=== PATIENT | female | born 1995 | race Caucasian/White ===

== ENCOUNTER 2016-04-24 16:44 | Inpatient (IN) | payer OTHER ==
[2016-04-24 17:23] LABS: RED BLOOD COUNT 3.73 M/UL (4.00-5.10); WHITE BLOOD COUNT 8.4 K/UL (4.5-11.0)
[2016-04-26 05:46] LABS: HEMOGLOBIN 7.2 gm/dl (12.3-15.3)
[2016-04-26 12:01] LABS: HEMOGLOBIN 6.3 gm/dl (12.3-15.3)
[2016-04-27 03:15] LABS: RED BLOOD COUNT 2.14 M/UL (4.00-5.10); WHITE BLOOD COUNT 15.4 K/UL (4.5-11.0)
[2016-04-27 03:16] LABS: HEMOGLOBIN 5.8 gm/dl (12.3-15.3)
[2016-04-27 11:51] LABS: HEMOGLOBIN 7.1 gm/dl (12.3-15.3); RED BLOOD COUNT 2.59 M/UL (4.00-5.10); WHITE BLOOD COUNT 17.8 K/UL (4.5-11.0)
[2016-08-20] MEDS ORDERED: NAPROSYN500 MG PO (07:06)
[2016-08-20] MEDS ORDERED: NORCO 5-325 TA1 EACH PO (10:07)
== END 2016-04-27 16:15 | disposition home or self-care (01) | DRG 768 ==
LOC: OB 16:44
PROVIDERS: Obstetrics & Gynecology; ADMIT Obstetrics & Gynecology
PROC: 10E0XZZ Delivery of Products of Conception, External Approach (ICD-10-PCS; principal; 2016-04-24)
PROC: 0W3R0ZZ Control Bleeding in Genitourinary Tract, Open Approach (ICD-10-PCS; 2016-04-24)
PROC: 0KQM0ZZ Repair Perineum Muscle, Open Approach (ICD-10-PCS; 2016-04-24)
PROC: 0U7C7ZZ Dilation of Cervix, Via Natural or Artificial Opening (ICD-10-PCS; 2016-04-24)
PROC: 10907ZC Drainage of Amniotic Fluid, Therapeutic from Products of Conception, Via Natural or Artificial Opening (ICD-10-PCS; 2016-04-24)
PROC: 30233H1 Transfusion of Nonautologous Whole Blood into Peripheral Vein, Percutaneous Approach (ICD-10-PCS; 2016-04-27)
DX: O48.0 Post-term pregnancy (principal); O72.1 Other immediate postpartum hemorrhage; O70.1 Second degree perineal laceration during delivery; Z3A.40 40 weeks gestation of pregnancy; Z37.0 Single live birth; Z83.3 Family history of diabetes mellitus; Z82.49 Family history of ischemic heart disease and other diseases of the circulatory system; Z80.9 Family history of malignant neoplasm, unspecified; Z84.89 Family history of other specified conditions
CPT/HCPCS: 36415; 36430; 36600; 81001; 82800; 83518; 85014; 85018; 85025; 86850; 86900; 86901; 86920; J2210; J2300; J2590; J2795; J3010; J7120; P9016; Q0163

== ENCOUNTER 2016-06-25 18:41 | Emergency (ER) | payer OTHER ==
[2016-06-25 19:55] LABS: HEMOGLOBIN 10.3 gm/dl (12.3-15.3); RED BLOOD COUNT 4.37 M/UL (4.00-5.10); WHITE BLOOD COUNT 13.5 K/UL (4.5-11.0)
[2016-06-25 20:14] LABS: BUN/CREATININE RATIO 26 (0-10)
[2016-08-20] MEDS ORDERED: NAPROSYN500 MG PO (07:06)
[2016-08-20] MEDS ORDERED: NORCO 5-325 TA1 EACH PO (10:07)
== END 2016-06-26 00:35 | disposition home or self-care (01) ==
LOC: ER1 18:41
PROVIDERS: Specialist/Technologist Athletic Trainer
DX: S39.012A Strain of muscle, fascia and tendon of lower back, initial encounter (principal); R82.4 Acetonuria; R74.0 Nonspecific elevation of levels of transaminase and lactic acid dehydrogenase [LDH]; X58.XXXA Exposure to other specified factors, initial encounter
CPT/HCPCS: 36415; 72128; 72131; 80053; 81001; 83690; 84703; 85025; 86403; 99284; J2405

== ENCOUNTER → 2016-06-26 | Outpatient (CLI) | payer OTHER ==
[~2016-06-26] MED LIST: NAPROSYN500 MG PO; NORCO 5-325 TA1 EACH PO
== END ==
LOC: LAB 14:54
DX: R74.0 Nonspecific elevation of levels of transaminase and lactic acid dehydrogenase [LDH] (principal)
CPT/HCPCS: 36415; 80074

== ENCOUNTER → 2016-07-01 | Outpatient (CLI) | payer OTHER | LOC: LAB 10:01 | DX: R10.9 Unspecified abdominal pain (principal); R74.8 Abnormal levels of other serum enzymes | CPT/HCPCS: 36415; 80076 ==

== ENCOUNTER 2016-07-28 15:33 | Emergency (ER) | payer OTHER ==
[2016-07-28 18:56] LABS: HEMOGLOBIN 9.9 gm/dl (12.3-15.3); RED BLOOD COUNT 4.33 M/UL (4.00-5.10); WHITE BLOOD COUNT 6.5 K/UL (4.5-11.0)
[2016-07-28 19:33] LABS: BUN/CREATININE RATIO 28 (0-10)
[2016-08-20] MEDS ORDERED: NAPROSYN500 MG PO (07:06)
[2016-08-20] MEDS ORDERED: NORCO 5-325 TA1 EACH PO (10:07)
== END 2016-07-28 20:10 | disposition left against medical advice (07) ==
LOC: ER1 15:33
PROVIDERS: Physician Assistant Medical
DX: S39.012A Strain of muscle, fascia and tendon of lower back, initial encounter (principal); S29.012A Strain of muscle and tendon of back wall of thorax, initial encounter; D64.9 Anemia, unspecified; X58.XXXA Exposure to other specified factors, initial encounter
CPT/HCPCS: 36415; 72072; 80053; 81001; 84703; 85025; 85379; 99283

== ENCOUNTER 2016-07-29 12:27 | Emergency (ER) | payer OTHER ==
[2016-07-29 15:25] LABS: HEMOGLOBIN 10.4 gm/dl (12.3-15.3); RED BLOOD COUNT 4.59 M/UL (4.00-5.10); WHITE BLOOD COUNT 6.6 K/UL (4.5-11.0)
[2016-07-29 15:51] LABS: BUN/CREATININE RATIO 33 (0-10)
[2016-08-20] MEDS ORDERED: NAPROSYN500 MG PO (07:06)
[2016-08-20] MEDS ORDERED: NORCO 5-325 TA1 EACH PO (10:07)
== END 2016-07-29 17:45 | disposition home or self-care (01) ==
LOC: ER1 12:27
PROVIDERS: Physician Assistant
DX: R07.9 Chest pain, unspecified (principal); M54.6 Pain in thoracic spine; R79.89 Other specified abnormal findings of blood chemistry
CPT/HCPCS: 36415; 80053; 81001; 82550; 82553; 83690; 83874; 84484; 84703; 85025; 93005; 96372; 99284; J1200; J7050; Q9963

== ENCOUNTER 2016-08-09 21:42 | Emergency (ER) | payer OTHER ==
[2016-08-10 03:27] LABS: HEMOGLOBIN 9.6 gm/dl (12.3-15.3); RED BLOOD COUNT 4.32 M/UL (4.00-5.10); WHITE BLOOD COUNT 6.8 K/UL (4.5-11.0)
[2016-08-10 03:46] LABS: BUN/CREATININE RATIO 28 (0-10)
[2016-08-20] MEDS ORDERED: NAPROSYN500 MG PO (07:06)
[2016-08-20] MEDS ORDERED: NORCO 5-325 TA1 EACH PO (10:07)
== END 2016-08-10 05:04 | disposition home or self-care (01) ==
LOC: ER1 21:42
PROVIDERS: Physician Assistant
DX: K80.70 Calculus of gallbladder and bile duct without cholecystitis without obstruction (principal); D64.9 Anemia, unspecified; R07.9 Chest pain, unspecified
CPT/HCPCS: 36415; 76705; 80053; 83690; 84484; 84703; 85025; 93005; 99284; J1885; J2405; Q0162

== ENCOUNTER → 2016-08-19 | Outpatient (CLI) | payer OTHER | LOC: OPSV2 13:00 | DX: Z01.812 Encounter for preprocedural laboratory examination (principal); K80.20 Calculus of gallbladder without cholecystitis without obstruction | CPT/HCPCS: 84703 ==

== ENCOUNTER → 2016-08-20 | Day surgery (SDC) | payer OTHER | END | disposition home or self-care (01) | LOC: OR 06:31 | PROVIDERS: Surgery | PROC: 0FT44ZZ Resection of Gallbladder, Percutaneous Endoscopic Approach (ICD-10-PCS; principal; 2016-08-20 07:30) | DX: K80.10 Calculus of gallbladder with chronic cholecystitis without obstruction (principal); I47.1 Supraventricular tachycardia; G89.29 Other chronic pain; M54.9 Dorsalgia, unspecified; Z86.2 Personal history of diseases of the blood and blood-forming organs and certain disorders involving the immune mechanism; Z90.89 Acquired absence of other organs; Z87.11 Personal history of peptic ulcer disease; Z91.041 Radiographic dye allergy status; Z79.899 Other long term (current) drug therapy | CPT/HCPCS: J0295; J1200; J1885; J2250; J2405; J2710; J2765; J3010; J7030; J7050; J7120; Q9962 ==

== ENCOUNTER 2016-09-09 20:38 | Emergency (ER) | payer OTHER ==
[2016-09-09 21:56] LABS: HEMOGLOBIN 10.2 gm/dl (12.3-15.3); RED BLOOD COUNT 4.58 M/UL (4.00-5.10); WHITE BLOOD COUNT 5.7 K/UL (4.5-11.0)
[2016-09-09 22:07] LABS: BUN/CREATININE RATIO 27 (0-10)
== END 2016-09-09 23:20 | disposition home or self-care (01) ==
LOC: ER1 20:38
PROVIDERS: Family Medicine
DX: D64.9 Anemia, unspecified (principal); I49.8 Other specified cardiac arrhythmias; Z91.041 Radiographic dye allergy status; Z79.899 Other long term (current) drug therapy
CPT/HCPCS: 36415; 80053; 81001; 83540; 83550; 84443; 84703; 85025; 99284

== ENCOUNTER 2016-09-23 05:04 | Emergency (ER) | payer OTHER ==
[2016-09-23 05:56] LABS: HEMOGLOBIN 9.9 gm/dl (12.3-15.3); RED BLOOD COUNT 4.45 M/UL (4.00-5.10); WHITE BLOOD COUNT 10.4 K/UL (4.5-11.0)
[2016-09-23 06:04] LABS: BUN/CREATININE RATIO 20 (0-10)
== END 2016-09-23 06:45 | disposition home or self-care (01) ==
LOC: ER1 05:04
PROVIDERS: Emergency Medicine
DX: R10.9 Unspecified abdominal pain (principal); Z91.041 Radiographic dye allergy status
CPT/HCPCS: 36415; 80053; 81001; 83605; 83690; 84703; 85025; 87086; 99284; J1335; J2270; J2405; J7050

== ENCOUNTER 2016-09-23 11:17 | Emergency (ER) | payer OTHER ==
[2016-09-23 13:02] LABS: HEMOGLOBIN 9.6 gm/dl (12.3-15.3); RED BLOOD COUNT 4.25 M/UL (4.00-5.10); WHITE BLOOD COUNT 8.8 K/UL (4.5-11.0)
== END 2016-09-23 13:55 | disposition home or self-care (01) ==
LOC: ER1 11:17
PROVIDERS: Physician Assistant
DX: R10.9 Unspecified abdominal pain (principal); Z91.041 Radiographic dye allergy status
CPT/HCPCS: 36415; 85025; 96365; 96375; 99284

== ENCOUNTER → 2016-09-24 | Outpatient (CLI) | payer OTHER | LOC: KOH-I 14:40 | DX: R10.9 Unspecified abdominal pain (principal); K38.8 Other specified diseases of appendix | CPT/HCPCS: 74176 ==

== ENCOUNTER → 2016-09-24 | Outpatient (CLI) | payer OTHER | LOC: LBRF 17:37 | DX: K92.1 Melena (principal) | CPT/HCPCS: 82272; 87045; 87046; 87177; 87425; 89055 ==

== ENCOUNTER 2021-10-23 15:27 | Emergency (ER) | payer MEDICAID ==
[~2021-10-23 15:27] MED LIST changes: +CLARITIN10 M2 PO; +COLACE 100MG C100 MG PO; +COMPAZINE10 MG PO; +IBUPROFEN600 MG PO; +IRON325 M1 PO; +LORTAB 5-325 M1 EACH PO; +MUCINEX600 MG PO; +PRENATAL VITAM1 EAC6 PO; +PROTONIX40 MG PO; +UNISOM25 MG PO; +VITAMIN B-625 MG PO; +Viscous lidocaine2% TOP; +ZOFRAN 4 MG TAB4 MG PO; +ZOFRAN ODT 4 MG4 MG PO; +ZOFRAN4 MG PO
[2021-10-23 16:03] LABS: HEMOGLOBIN 12.7 gm/dl (12.3-15.3); RED BLOOD COUNT 4.32 M/UL (4.00-5.10); WHITE BLOOD COUNT 5.6 K/UL (4.5-11.0)
[2021-10-23 16:45] LABS: BUN/CREATININE RATIO 12 (0-10)
[2021-10-23] MEDS ORDERED: ZOFRAN ODT 4 MG4 MG PO (17:14)
== END 2021-10-23 17:57 | disposition home or self-care (01) ==
LOC: ER1 15:27
DX: R19.7 Diarrhea, unspecified (principal); R11.0 Nausea; R10.9 Unspecified abdominal pain; R05.9 Cough, unspecified; R51.9 Headache, unspecified; Z91.041 Radiographic dye allergy status; Z20.822 Contact with and (suspected) exposure to COVID-19
CPT/HCPCS: 80053; 81001; 83605; 83690; 84703; 85025; 87086; 99284; U0002